=== PATIENT | female | born 1980 | race Caucasian/White ===

== ENCOUNTER 2019-02-28 01:31 | Emergency (ER) | payer MEDICAID ==
[~2019-02-28] VITALS: Ht 172.7 cm; Wt 88.0 kg
[~2019-02-28 01:31] MED LIST: CLON1TAB11 PO
[2019-02-28] MEDS ORDERED: DIPHENHYDRAMINE 25 MG CAPSULE PO ONE (02:00)
[2019-02-28] MEDS ORDERED: BUTALB/APAP/CAFFEINE 50MG/325MG/40MG PO ONE (02:00)
[2019-02-28] MEDS ORDERED: PROCHLORPERAZINE 10MG TABLET PO ONE (02:00)
[2019-02-28] MEDS ORDERED: PROCHLORPERAZINE 10MG TABLET ONE (02:04)
[2019-02-28] MEDS ORDERED: DIPHENHYDRAMINE 25 MG CAPSULE ONE (02:04)
[2019-02-28 02:08] VITALS: BP 128/91
--- NOTE | 2019-02-28 02:52 | NUR ---
Pt feeling better from medication and able to tolerate po intake.
== END 2019-02-28 03:07 | disposition home or self-care (01) ==
LOC: ED 03:00
DX: G43.009 Migraine without aura, not intractable, without status migrainosus (principal); F15.10 Other stimulant abuse, uncomplicated; F17.210 Nicotine dependence, cigarettes, uncomplicated; J45.909 Unspecified asthma, uncomplicated
CPT/HCPCS: 99284; 99406; Q0163; Q0164

== ENCOUNTER 2019-07-14 01:57 | Emergency (ER) | payer MEDICAID ==
[~2019-07-14] VITALS: Ht 172.7 cm; Wt 91.0 kg
[2019-07-14 01:59] VITALS: BP 144/97
== END 2019-07-14 02:47 | disposition home or self-care (01) ==
LOC: ED 02:45
DX: F41.1 Generalized anxiety disorder (principal); Z72.9 Problem related to lifestyle, unspecified; J45.909 Unspecified asthma, uncomplicated
CPT/HCPCS: 99283

== ENCOUNTER 2020-04-21 16:37 | Emergency (ER) | payer MEDICAID ==
[~2020-04-21] VITALS: Ht 172.7 cm; Wt 111.9 kg
[2020-04-21] MEDS ORDERED: NEOSPORIN OINT. PKT 1 PACKET ONE (17:42)
--- NOTE | 2020-04-21 17:44 | NUR ---
task rnL wound cleansed with saline then dressed
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
[2020-04-21 17:48] VITALS: BP 132/89
--- NOTE | 2020-04-21 17:48 | NUR ---
PT DISCHARGED FOLLOWING APPLICATION OF ANTIBIOTIC OINTMENT TO BACK WOUND. PT AMBULATED TO DISCHARGE W/STEADY GAIT. PT EDUCATED TO RETURN TO THE ED W/WORSENING SYMPTOMS.
== END 2020-04-21 17:45 | disposition home or self-care (01) ==
LOC: ED 16:45
DX: B35.4 Tinea corporis (principal); F17.200 Nicotine dependence, unspecified, uncomplicated; G43.909 Migraine, unspecified, not intractable, without status migrainosus; Z98.51 Tubal ligation status
CPT/HCPCS: 99282

== ENCOUNTER 2020-06-18 05:51 | Inpatient (IN) | payer MEDICAID ==
[~2020-06-18] VITALS: Ht 170.2 cm; Wt 108.5 kg
[2020-06-18] MEDS ORDERED: HALOPERIDOL 5 MG TABLET ONE (08:29)
[2020-06-18] MEDS ORDERED: DIPHENHYDRAMINE 50 MG CAPSULE ONE (08:29)
[2020-06-18] MEDS ORDERED: DIPHENHYDRAMINE 50 MG CAPSULE PO STA (08:39)
[2020-06-18] MEDS ORDERED: LORazepam 1MG TABLET PO STA (08:39)
[2020-06-18] MEDS ORDERED: HALOPERIDOL 5 MG TABLET PO STA (08:39)
[2020-06-18] MEDS ORDERED: POLYETHYLENE GLYCOL 17 GM PACKET PO PRN (09:00)
[2020-06-18] MEDS ORDERED: BISACODYL 10 MG SUPP PR PRN (09:00)
[2020-06-18] MEDS ORDERED: ONDANSETRON ODT 4 MG PO PRN (09:00)
[2020-06-18] MEDS ORDERED: DOCUSATE 100 MG CAPSULE PO PRN (09:00)
[2020-06-18] MEDS ORDERED: TOPI50TA35 PO (09:19)
[2020-06-18] MEDS ORDERED: CARB200T PO (09:19)
[2020-06-18] MEDS ORDERED: LISD50CA3 PO (09:19)
[2020-06-18] MEDS ORDERED: ALPR1TAB2 PO (09:19)
[2020-06-18 09:44] VITALS: BP 163/73
[2020-06-18] MEDS: TOPIRAMATE 25 MG TABLET PO SCH ×2 (13:00→20:55)
[2020-06-18] MEDS: METHYLPHENIDATE 10 MG TABLET PO SCH (13:00)
[2020-06-18] MEDS ORDERED: NICOTINE 21 MG/24 HR PATCH.TD24 ONE (17:48)
[2020-06-18] MEDS: NICOTINE 21 MG/24 HR PATCH.TD24 TD SCH (17:52)
[2020-06-18] MEDS ORDERED: FLU VACC QS2020-21(6MOS UP)/PF 60MCG/0.5 ML SYR IM-VACC ONE (18:30)
[2020-06-18 19:45] VITALS: BP 135/80
[2020-06-18] MEDS ORDERED: TOPIRAMATE 100 MG TABLET ONE (20:52)
[2020-06-18] MEDS: ALPRazolam 1MG TAB PO SCH (20:54)
[2020-06-18] MEDS: CARBAMAZEPINE 200 MG TABLET PO SCH (20:54)
[2020-06-19 06:01] VITALS: BP 130/80
[2020-06-19 06:28] LABS: CHOL/HDL RATIO 4.5; FREE T4 (FREE THYROXINE) 0.72 ng/dL (0.76-1.46)
[2020-06-19] MEDS: METHYLPHENIDATE 10 MG TABLET PO SCH (08:34)
[2020-06-19] MEDS: ALPRazolam 1MG TAB PO SCH ×2 (08:34→21:08)
[2020-06-19] MEDS: CARBAMAZEPINE 200 MG TABLET PO SCH ×2 (08:34→21:07)
[2020-06-19] MEDS: TOPIRAMATE 25 MG TABLET PO SCH ×2 (08:35→21:07)
[2020-06-19] MEDS: NICOTINE 21 MG/24 HR PATCH.TD24 TD SCH (08:36)
[2020-06-19] MEDS: ACETAMINOPHEN 325 MG TABLET PO PRN ×2 (08:39→21:08)
[2020-06-19 13:13] LABS: MICROSCOPIC INDICATED
[2020-06-19 19:24] VITALS: BP 109/70
[2020-06-20 07:47] VITALS: BP 115/85
[2020-06-20] MEDS: ALPRazolam 1MG TAB PO SCH ×2 (08:22→20:55)
[2020-06-20] MEDS: TOPIRAMATE 25 MG TABLET PO SCH ×2 (08:22→20:55)
[2020-06-20] MEDS: CARBAMAZEPINE 200 MG TABLET PO SCH ×2 (08:22→20:55)
[2020-06-20] MEDS: METHYLPHENIDATE 10 MG TABLET PO SCH (08:22)
[2020-06-20] MEDS: NICOTINE 21 MG/24 HR PATCH.TD24 TD SCH (09:37)
[2020-06-20 19:42] VITALS: BP 133/90
[2020-06-21 07:56] VITALS: BP 115/80
[2020-06-21] MEDS: ALPRazolam 1MG TAB PO SCH ×2 (08:54→20:09)
[2020-06-21] MEDS: METHYLPHENIDATE 10 MG TABLET PO SCH (08:54)
[2020-06-21] MEDS: TOPIRAMATE 25 MG TABLET PO SCH ×2 (08:54→20:09)
[2020-06-21] MEDS: CARBAMAZEPINE 200 MG TABLET PO SCH ×2 (09:04→20:09)
[2020-06-21] MEDS: NICOTINE 21 MG/24 HR PATCH.TD24 TD SCH (09:06)
[2020-06-21] MEDS ORDERED: LORazepam 1MG TABLET ONE (12:26)
[2020-06-21] MEDS ORDERED: LORazepam 1MG TABLET PO PRN (12:30)
[2020-06-21 19:17] VITALS: BP 124/85
[2020-06-22 07:54] VITALS: BP 120/84
[2020-06-22] MEDS: METHYLPHENIDATE 10 MG TABLET PO SCH (08:06)
[2020-06-22] MEDS: CARBAMAZEPINE 200 MG TABLET PO SCH ×2 (08:06→21:44)
[2020-06-22] MEDS: ALPRazolam 1MG TAB PO SCH ×2 (08:06→21:44)
[2020-06-22] MEDS: TOPIRAMATE 25 MG TABLET PO SCH ×2 (08:06→21:44)
[2020-06-22] MEDS: NICOTINE 21 MG/24 HR PATCH.TD24 TD SCH ×2 (09:00→15:24)
[2020-06-22] MEDS: CALAMINE LOTION 180ML TP PRN (10:31)
[2020-06-22 19:26] VITALS: BP 126/85
[2020-06-23 07:40] VITALS: BP 126/83
[2020-06-23] MEDS: ALPRazolam 1MG TAB PO SCH (07:40)
[2020-06-23] MEDS: TOPIRAMATE 25 MG TABLET PO SCH (07:40)
[2020-06-23] MEDS: CARBAMAZEPINE 200 MG TABLET PO SCH (07:40)
[2020-06-23] MEDS: CALAMINE LOTION 180ML TP PRN (07:40)
[2020-06-23] MEDS: METHYLPHENIDATE 10 MG TABLET PO SCH (07:40)
[2020-06-23] MEDS: NICOTINE 21 MG/24 HR PATCH.TD24 TD SCH (07:41)
[2020-06-23] MEDS ORDERED: NICO-587 TD (08:36)
== END 2020-06-23 09:10 | disposition home or self-care (01) | DRG 753 ==
LOC: 3E 08:26
PROVIDERS: ADMIT Psychiatry & Neurology Psychosomatic Medicine; ATTEND Psychiatry & Neurology Psychosomatic Medicine
DX: F31.30 Bipolar disorder, current episode depressed, mild or moderate severity, unspecified (principal); F11.20 Opioid dependence, uncomplicated; F10.20 Alcohol dependence, uncomplicated; F41.1 Generalized anxiety disorder; F90.9 Attention-deficit hyperactivity disorder, unspecified type; F15.20 Other stimulant dependence, uncomplicated; R45.1 Restlessness and agitation; Z91.14 Patient's other noncompliance with medication regimen; Z79.899 Other long term (current) drug therapy; Z91.5 Personal history of self-harm; F17.210 Nicotine dependence, cigarettes, uncomplicated
CPT/HCPCS: 36415; 71045; 80061; 81001; 84439; 84443; 93005

== ENCOUNTER 2020-10-02 10:39 | Emergency (ER) | payer MEDICAID ==
[~2020-10-02] VITALS: Ht 172.7 cm; Wt 101.4 kg
[~2020-10-02 10:39] MED LIST changes: +ALPR1TAB2 PO; +CARB200T PO; +LISD50CA3 PO; +NICO-587 TD; +TOPI50TA35 PO
[2020-10-02] MEDS ORDERED: PHENAZOPYRIDINE 200 MG TABLET PO ONE (11:30)
[2020-10-02] MEDS ORDERED: PHENAZOPYRIDINE 200 MG TABLET ONE (11:37)
--- NOTE | 2020-10-02 11:58 | NUR ---
PT CAME IN CO RIGHT FLANK PAIN THAT RADIATES TO HER RIGHT LOWER QUADRANT WITH FREQUENT URINATION. THIS HAS BEEN GOING FOR ABOUT A WEEK BUT THE PAIN GOT WORSE LAST NIGHT. PT CONNECTED TO MONITORS. BLANKET PROVIDED
[2020-10-02 12:09] LABS: MICROSCOPIC INDICATED
[2020-10-02 12:16] VITALS: BP 138/89
== END 2020-10-02 12:48 | disposition home or self-care (01) ==
LOC: ED 11:21
DX: N30.01 Acute cystitis with hematuria (principal); J45.909 Unspecified asthma, uncomplicated; F17.200 Nicotine dependence, unspecified, uncomplicated
CPT/HCPCS: 81001; 87077; 87086; 87186; 99283